=== PATIENT | female | born 1995 | race African-American/Black ===

== ENCOUNTER 2018-10-15 11:41 | Emergency (ER) | payer MEDICAID ==
[~2018-10-15] VITALS: Ht 160 cm; Wt 63.0 kg
[2018-10-15] MEDS ORDERED: SODIUM CHLORIDE 0.9% 1,000 ML IV SCH (12:28)
[2018-10-15] MEDS ORDERED: FAMOTIDINE 20MG/2ML VIAL IV ONE (12:30)
[2018-10-15] MEDS ORDERED: ONDANSETRON HCL 4MG/2ML INJ IV ONE (12:30)
[2018-10-15] MEDS ORDERED: METHYLPREDNISOLONE SOD SUCC 125 MG/2 ML VIAL IV ONE (12:30)
[2018-10-15] MEDS ORDERED: DIPHENHYDRAMINE 50MG/ML VIAL IV ONE (12:30)
[2018-10-15 14:23] LABS: BASOPHILS % 0.3 % (0.0-2.0); EOSINOPHILS % 0.4 % (0.0-5.0); HEMATOCRIT. 41.3 % (36.0-48.0); HEMOGLOBIN. 13.9 g/dL (12.0-16.0); LYMPHOCYTES % 26.1 % (20.0-50.0); MEAN CORPUSCULAR HEMOGLOBIN 30.7 pg (28.0-32.0); MEAN CORPUSCULAR VOLUME 90.8 fL (81.0-99.0); MEAN PLATELET VOLUME 9.8 fl (7.4-10.4); MONOCYTES % 8.3 % (2.0-8.0); NEUTROPHILS % 64.9 % (40.0-76.0); PLATELET 245 x1000/uL (130-400); RED BLOOD CELL COUNT 4.55 mill/uL (4.2-5.4); RED CELL DISTRIBUTION WIDTH 12.6 % (11.6-14.6)
[2018-10-15 14:27] LABS: CHLORIDE 105 mEq/L (98-107)
[2018-10-15 14:39] LABS: HCG SCREEN NEGATIVE
[2018-10-15 15:12] VITALS: BP 105/67
== END 2018-10-15 15:16 | disposition home or self-care (01) ==
LOC: ER 11:41
DX: T78.40XA Allergy, unspecified, initial encounter (principal)
CPT/HCPCS: 36415; 80053; 84703; 85025; 96374; 96375; 99283; J1200; J2405; J2930; J3490